=== PATIENT | female | born 1935 | race African-American/Black ===

== ENCOUNTER 2020-10-30 09:22 | Inpatient (IN) ==
[2020-10-30] MEDS ORDERED: HEPARIN/NACL 0.9% 2 UNITS/ML 1,000 UNIT/500 ML BAG IV ONE (09:57)
[2020-10-30 10:02] LABS: Basophils # 0.1 10*3/uL (0.0-0.2); Basophils % 0.6 % (0.0-0.8); Eosinophils # 0.1 10*3/uL (0.0-0.87); Eosinophils % 0.9 % (0.00-10.9); Immature Granulocytes % 0.4 %; Immature Granulocytes Absolute 0.03 #; Lymphocytes # 1.8 10*3/uL (1.4-4.0); Lymphocytes % 21.5 % (21.3-54.2); Mean Corpuscular HGB Conc 32.4 GM/DL (32-36); Mean Corpuscular Volume 87.1 FL (87-102); Monocytes % 3.8 % (1.7-12.7); Neutrophils % 72.8 % (38.7-73.9); Platelet Count 233 T/CUMM (130-400); Red Blood Count 4.25 MC/CUMM (3.8-5.5); Red Cell Distribution Width 14.2 % (9.3-17.3); White Blood Count 8.4 T/CUMM (4-12)
[2020-10-30] MEDS ORDERED: ZALEPLON 5 MG CAPSULE PO PRN (10:20)
[2020-10-30] MEDS ORDERED: ONDANSETRON 4 MG/2 ML VIAL IV PRN (10:20)
[2020-10-30] MEDS ORDERED: CALCIUM CARBONATE CHEW 500 MG TABLET PO PRN (10:20)
[2020-10-30] MEDS ORDERED: LACTULOSE 20 GM/30 ML UDCUP PO PRN (10:20)
[2020-10-30] MEDS ORDERED: MORPHINE 2 MG/1 ML SYRINGE IV PRN (10:20)
[2020-10-30] MEDS ORDERED: ceFAZolin 1,000 MG VIAL IRRIG ONE (10:20)
[2020-10-30] MEDS ORDERED: SIMETHICONE CHEW 125 MG TABLET PO PRN (10:20)
[2020-10-30] MEDS ORDERED: MAGNESIUM SULF RIDER 4 GM/100 ML PREMIX IV PRN (10:20)
[2020-10-30] MEDS ORDERED: ACETAMINOPHEN 325 MG TABLET PO PRN (10:20)
[2020-10-30] MEDS ORDERED: MAGNESIUM SULF RIDER 2 GM/50 ML PREMIX IV PRN (10:20)
[2020-10-30] MEDS ORDERED: BISACODYL 5 MG TABLET PO PRN (10:20)
[2020-10-30] MEDS ORDERED: hydrALAZINE 20 MG/1 ML VIAL IV PRN (10:20)
[2020-10-30] MEDS ORDERED: ALUMINUM/MAGNES/SIMETH MAX STR 30 ML UDCUP PO PRN (10:20)
[2020-10-30] MEDS ORDERED: POTASSIUM CHLORIDE 20 MEQ TABLET PO PRN (10:20)
[2020-10-30 10:22] LABS: Albumin 3.2 G/DL (3.4-5.0); Bilirubin,Total 0.4 MG/DL (0.20-1.00); Calcium 8.8 MG/DL (8.5-10.1); Osmolality,Calculated 289.7 MOS/KG (273-304); Potassium 3.9 MMOL/L (3.5-5.1)
[2020-10-30] MEDS ORDERED: SODIUM CHLORIDE 0.9% 1,000 ML IV SCH (10:30)
[2020-10-30] MEDS ORDERED: LIDOCAINE 1%/EPI INJ 20 ML VIAL ONE (10:30)
[2020-10-30] MEDS ORDERED: TISSUE ADHESIVE 1 EACH APPLICATOR TOP ONE (10:30)
[2020-10-30] MEDS ORDERED: HYDROmorphone 2 MG/1 ML VIAL ONE (10:37)
[2020-10-30] MEDS ORDERED: MIDAZOLAM 2 MG/2 ML VIAL ONE (10:37)
[2020-10-30] MEDS ORDERED: DEXTROSE 50% 25 GM/50 ML VIAL IV PRN (13:20)
[2020-10-30] MEDS ORDERED: GLUCAGON 1 MG VIAL IM PRN (13:20)
[2020-10-30] MEDS: INSULIN LISPRO 100 UNIT/ML SUBCUT SCH ×2 (17:41→22:00)
[2020-10-30] MEDS ORDERED: diphenhydrAMINE CAP 25 MG CAPSULE PO PRN (17:48)
[2020-10-31 05:27] LABS: Basophils % 0.3 % (0.0-0.8); Eosinophils # 0.1 10*3/uL (0.0-0.87); Eosinophils % 0.5 % (0.00-10.9); Hematocrit 39.7 VOL% (35.7-47.0); Hemoglobin 12.6 GM/DL (12.0-16.0); Immature Granulocytes % 0.2 %; Immature Granulocytes Absolute 0.02 #; Lymphocytes # 1.6 10*3/uL (1.4-4.0); Lymphocytes % 16.2 % (21.3-54.2); Mean Corpuscular HGB Conc 31.7 GM/DL (32-36); Mean Corpuscular Volume 86.7 FL (87-102); Mean Platelet Volume 10.9 FL (9.6-12.0); Monocytes % 5.3 % (1.7-12.7); Neutrophils % 77.5 % (38.7-73.9); Platelet Count 233 T/CUMM (130-400); Red Blood Count 4.58 MC/CUMM (3.8-5.5); White Blood Count 9.6 T/CUMM (4-12)
[2020-10-31 05:50] LABS: Osmolality,Calculated 285.8 MOS/KG (273-304); Potassium 3.7 MMOL/L (3.5-5.1)
[2020-10-31 05:53] LABS: Risk Ratio 4.64; VLDL Cholesterol 16.4 MG/DL
[2020-10-31 08:18] VITALS: BP 170/74
[2020-10-31] MEDS ORDERED: CHOLECALCIFEROL 1,000 UNIT TABLET PO SCH (09:00)
[2020-10-31] MEDS ORDERED: PANTOPRAZOLE 40 MG TABLET PO SCH (09:00)
[2020-10-31] MEDS ORDERED: amLODIPine 10 MG TABLET PO SCH (09:00)
[2020-10-31] MEDS ORDERED: CHLORTHALIDONE 25 MG TABLET PO SCH (09:00)
[2020-10-31] MEDS ORDERED: methylPREDNISolone SOD SUC 125 MG/2 ML VIAL IV ONE (09:12)
[2020-10-31] MEDS ORDERED: diphenhydrAMINE CAP 25 MG CAPSULE PO ONE (09:12)
[2020-10-31] MEDS ORDERED: FAMOTIDINE 20 MG TABLET PO ONE (09:12)
[2020-10-31] MEDS: INSULIN LISPRO 100 UNIT/ML SUBCUT SCH (09:20)
[2020-10-31] MEDS ORDERED: carvediloL 6.25 MG TABLET PO SCH (09:30)
[2020-10-31] MEDS ORDERED: ASPIRIN EC 81 MG TABLET PO SCH (09:30)
[2020-10-31] MEDS ORDERED: ROSUVASTATIN 20 MG TABLET PO SCH (09:30)
[2020-11-01] MEDS ORDERED: ENOXAPARIN 40 MG/0.4 ML SYRINGE SUBCUT SCH (09:00)
== END 2020-10-31 11:10 | disposition home or self-care (01) | DRG 244 ==
LOC: EDUNIT# → EDBD → N.EDINP 09:22 → N.ED 09:22 → N.TELES 11:22
PROVIDERS: ADMIT Internal Medicine Cardiovascular Disease; ATTEND Internal Medicine Cardiovascular Disease